=== PATIENT | female | born 1950 | race Caucasian/White ===

== ENCOUNTER 2016-06-06 05:39 | Inpatient (IN) | payer OTHER, MEDICARE ==
--- NOTE | 2016-06-05 16:20 | GHP ---
[f rep st] PREOP HISTORY AND PHYSICAL PREOPERATIVE DIAGNOSIS: Left ureteral obstruction with hydronephrosis. HISTORY OF PRESENT ILLNESS: This is a 65-year-old female who is referred from Dr. Sanjuanita Couch and Dr. Wan Mtz because of left hydronephrosis. She is status post debulking of extensive ovarian cancer in December in [place]. Postop CT scan revealed distal ureteral obstruction. She appears to have a staple across her ureter causing obstruction. She has a nephrostomy tube in place. She has completed chemotherapy. She is admitted for exploration with possible ureteral ureterostomy or ureteral robert cystotomy. PAST MEDICAL HISTORY: Kidney infection, ovarian cancer, hydronephrosis. PAST SURGERY: Breast surgery, ovarian cancer, ureteroscopy. MEDICATIONS: Cytomel, Synthroid. ALLERGIES: None. FAMILY HISTORY: Denied. SOCIAL HISTORY: Rare alcohol consumption. . REVIEW OF SYSTEMS: Negative cardiac, respiratory, GI and endocrine. PHYSICAL EXAM: VITAL SIGNS: Stable. CHEST: Clear. HEART: Regular rate and rhythm. ABDOMEN: Normal. No organomegaly, rebound, or guarding. EXTREMITIES : Lower extremities are normal. At the present time, she is admitted for the above procedure. /[id number]/MODL MTDD
[2016-06-06] MEDS ORDERED: ceFAZolin 2 GM/DEXTROSE 100 ML IV ONE (06:00)
[2016-06-06] MEDS ORDERED: LR 1,000 ML IV ONE (06:32)
[2016-06-06] MEDS ORDERED: MIDAZOLAM 2 MG/2 ML VIAL ONE (07:10)
[2016-06-06] MEDS ORDERED: PROPOFOL/EMULSION 500 MG/50 ML BOTTLE IV ONE (07:24)
[2016-06-06] MEDS ORDERED: fentaNYL 100 MCG/2 ML INJ ONE ×2 (07:24→10:30)
[2016-06-06] MEDS ORDERED: LIDOCAINE HCL 160 MG/4 ML LTA KIT TP ONE (07:25)
[2016-06-06] MEDS ORDERED: DEXAMETHASONE 4 MG/ML VIAL ONE (07:25)
[2016-06-06] MEDS ORDERED: LIDOCAINE 2% 100 MG/5 ML SYR IVP ONE (07:25)
[2016-06-06] MEDS ORDERED: ONDANSETRON 4 MG/2 ML VIAL ONE (07:25)
[2016-06-06] MEDS ORDERED: ROCURONIUM 50 MG/5 ML VIAL ONE (07:25)
[2016-06-06] MEDS ORDERED: PHENYLEPHRINE HCL 100 MCG/ML SYR ONE (07:41)
[2016-06-06] MEDS ORDERED: SUGAMMADEX SODIUM 200 MG/2 ML VIAL IVP ONE (09:59)
[2016-06-06] MEDS ORDERED: ACETAMINOPHEN 325 MG TAB PO PRN (10:15)
--- NOTE | 2016-06-06 10:20 | POSTOPPROG ---
Post Op Note Date of Operation: 06/06/16 Surgeon: Arash Williamson Steaming Machine Operator: Harlan Anesthesiologist: Robert Anesthesia: LMA Pre-op Diagnosis: left hyronephrosis Post-op Diagnosis: same Indication: same Procedure: left ureteroneocystostomy, stent, psoas hitch, lysis of adhesions Findings: hydro Inf/Abcess present in the surg proc area at time of surgery?: No EBL: 50-100 Complications: none Drains: Roberto Rader Specimen(s): dictated, no specimen
--- NOTE | 2016-06-06 11:33 | GOP ---
[f rep st] OPERATIVE REPORT DATE OF OPERATION: SURGEON: Arash Williamson MD CUSTOMER SUCCESS DIRECTOR: Harlan. ANESTHESIOLOGIST: Robert provided general anesthesia. PREOPERATIVE DIAGNOSIS: Left ureteral obstruction with hydronephrosis. POSTOPERATIVE DIAGNOSIS: Left ureteral obstruction with hydronephrosis. PROCEDURE PERFORMED: Left ureteroneocystostomy, lysis of adhesions, intraoperative ureteral stent pl acement and psoas hitch. FINDINGS: SPECIMENS: None. ESTIMATED BLOOD LOSS: Less than 100 mL. DESCRIPTION OF PROCEDURE: After appropriate general anesthesia, a time-out was performed in appropri ate fashion. She had a lower midline incision carried down through skin and old suture was removed f rom her prior surgery closure. Then I was able to enter the abdomen and there were several adhesions of the small bowel that were taken down sharply. Meticulous care not to make an enterotomy was perf ormed, and then I entered the space of Retzius to the left side of the bladder, and then also the rig ht side and after mobilizing the bladder dissected out where I could identify the iliac vessels. She had a significant amount of inflammatory reaction with pelvic varices identified and visually identi fy the ureter as it came over the iliac vessels. I dissected that out and mobilized it in attempt to preserve its vascular supply. I then dissected out to where I could identify it with clips and then placed across the ureter, transected it, and then made sure there was no tension on the ureter, and then I did a psoas hitch with 0 Vicryl. Then the cystotomy was made in and approximated the ureter t o the bladder mucosa with a 4-0 Vicryl suture. It was bridged with a 6-Italian stent and then the saumya dder was tested and noted to be water tight. A ARABELLA drain placed in the space of Retzius on the left s joon of the pelvis and after irrigating it hemostasis was appreciated, and then the linea alba approxi mated with 0 PDS. Subcutaneous tissue was hemostatic and skin jameson placed. Drains were in place with a 3-0 silk. COMPLICATIONS: None. /[id number]/MODL
[2016-06-06] MEDS: HYDROCODONE/APAP 5/325 TAB PO PRN ×2 (12:32→18:03)
[2016-06-06] MEDS: ONDANSETRON 4 MG/2 ML VIAL IVP PRN ×2 (12:34→19:25)
[2016-06-06] MEDS: D5W 1/2 NS 1,000 ML IV SCH (14:32)
[2016-06-06] MEDS: ZOLPIDEM TARTRATE 5 MG TAB PO PRN (20:34)
[2016-06-06] MEDS: ONDANSETRON DISINTEGRATING 4 MG TAB PO PRN (20:35)
[2016-06-07] MEDS: D5W 1/2 NS 1,000 ML IV SCH ×3 (00:29→20:19)
[2016-06-07] MEDS: ONDANSETRON DISINTEGRATING 4 MG TAB PO PRN (00:29)
[2016-06-07] MEDS: ZOLPIDEM TARTRATE 5 MG TAB PO PRN (00:38)
[2016-06-07] MEDS ORDERED: OXYCODONE/APAP 5/325 TAB PO PRN (01:50)
[2016-06-07] MEDS ORDERED: LIDOCAINE 2% JELLY 20 ML (UROJECT) ONE (05:32)
[2016-06-07] MEDS ORDERED: LIDOCAINE 2% JELLY 20 ML (UROJECT) TP ONE (06:00)
[2016-06-07 06:04] LABS: % IMMATURE GRANULYOCYTES 0.3 % (0.0-1.1); ABSOLUTE IMMATURE GRANULOCYTES 0.02 10^3/uL (0.00-0.10); ADD DIFF? NO; ADD MORPH? NO; ADD SCAN? NO; ATYPICAL LYMPHOCYTE FLAG 10 (0-99); FRAGMENT RBC FLAG 10 (0-99); HEMATOCRIT 29.4 % (38.0-47.0); HEMOGLOBIN 9.5 g/dL (12.6-16.3); LEFT SHIFT FLG 0 (0-99); LIPEMIA HEMOLYSIS FLAG 80 (0-99); MEAN CELL HEMOGLOBIN 34.9 pg (27.9-34.1); MEAN CELL HEMOGLOBIN CONCENTR. 32.3 g/dL (32.4-36.7); MEAN CELL VOLUME 108.1 fL (81.5-99.8); MEAN PLATELET VOLUME 9.9 fL (8.7-11.7); PLATELET CLUMPS FLAG 0 (0-99); PLATELET COUNT 179 10^3/uL (150-400); RED BLOOD CELL COUNT 2.72 10^6/uL (4.18-5.33); RED CELL DISTRIBUTION WIDTH 16.5 % (11.5-15.2)
[2016-06-07] MEDS: LEVOTHYROXINE 100 MCG TAB PO SCH (06:05)
[2016-06-07 06:20] LABS: ANION GAP 5 mEq/L (8-16); CARBON DIOXIDE 27 mEq/l (22-31); CHLORIDE 104 mEq/L (97-110); CREATININE 0.6 mg/dL (0.6-1.0); GLOMERULAR FILTRATION RATE > 60; GLUCOSE 107 mg/dL (70-100); POTASSIUM 4.1 mEq/L (3.5-5.2); SODIUM 136 mEq/L (134-144)
[2016-06-07] MEDS: LIOTHYRONINE SODIUM 25 MCG TAB PO SCH (10:14)
--- NOTE | 2016-06-07 10:57 | SOAPPROG ---
[facility] Progress Note Assessment/Plan: Assessment: Hydronephrosis Acute POD 1, doing well Plan: as ordered 06/07/16 10:55 Subjective: ok Objective: Vital Signs Temp Pulse Resp BP Pulse Ox 37.1 C 78 16 95/56 L 98 06/07/16 08:22 06/07/16 08:22 06/07/16 08:22 06/07/16 04:35 06/07/16 08:22 Laboratory Results 06/07/16 05:45 06/07/16 05:45 06/06/16 06/07/16 06/08/16 05:59 05:59 05:59 Intake Total 2941 Output Total 3315 850 Balance -374 -850 Physical Exam - Physical Exam General Appearance: alert Respiratory: No respiratory distress Cardiac/Chest: regular rate, rhythm Abdomen: soft Extremities: No calf tenderness Neuro/Psych: alert, oriented x 3 ICD10 Worksheet Patient Problems: Problems Problem Status Diagnosed Hydronephrosis Acute Pneumothorax on left Acute Small bowel obstruction Acute - ICD10 Problem Qualifiers (1) Hydronephrosis
[2016-06-07] MEDS: HYDROCODONE/APAP 5/325 TAB PO PRN ×2 (14:17→20:20)
[2016-06-07] MEDS: ONDANSETRON 4 MG/2 ML VIAL IVP PRN ×2 (14:17→20:20)
--- NOTE | 2016-06-07 16:49 | IR ---
Antegrade Nephrostogram Nephrostomy Tube Removal Indication: Patient currently has a nephrostomy tube and a double-J ureteral stent. Status post urete ral implantation surgery yesterday. ARABELLA drain is in the pelvis. Evaluate drainage via stent and rule o ut leak. Informed Consent: Obtained from the patient. Risks and benefits were discussed. Cross Cutting Measure: Patient's current list of medications including all known prescriptions, over -the-counter medications, herbals, and vitamin/mineral/dietary supplements are reviewed. Medications ' name, dosage, frequency, and route of administration are confirmed. Patient is a non-smoker. Prophylactic Antibiotic: Cefazolin was not ordered and administered for antimicrobial prophylaxis be cause it was not medically necessary. VTE Prophylaxis: There is not an order for VTE prophylaxis to be given within 24 hours of the proced ure end time. VTE prophylaxis was not given because it was not medically necessary. Technique: Patient is placed in right lateral decubitus position. This is the only position the pat ient was able to tolerate. A "timeout" procedure was performed to identify the correct patient and th e correct procedure. 1% Xylocaine was used for local anesthetic. All elements of maximal sterile b arrier technique including cap, mask, sterile gown, sterile gloves, large sterile sheet, hand hygiene , and 2% chlorhexidine for cutaneous antisepsis, followed. Antegrade nephrostogram was performed via the nephrostomy tube. This shows rapid antegrade drainage v ia the stent into bladder. Digital subtraction antegrade nephrostogram was performed, which does not show any extrabladder extravasation. Contrast fills the bladder. The tube was then cut and removed over wire under fluoroscopic visualization. Post nephrostomy tube i mage over the kidney shows lack of displacement of the stent. Fluoroscopy: 1.6 minutes, 5 images. Impressions 1. Rapid antegrade drainage via stent. 2. No evidence for leakage at the anastomosis distally. 3. Nephrostomy tube removed.
[2016-06-08] MEDS: D5W 1/2 NS 1,000 ML IV SCH (05:01)
[2016-06-08] MEDS: LEVOTHYROXINE 100 MCG TAB PO SCH (05:01)
[2016-06-08] MEDS: ONDANSETRON 4 MG/2 ML VIAL IVP PRN ×2 (07:42→21:21)
[2016-06-08] MEDS: HYDROCODONE/APAP 5/325 TAB PO PRN ×2 (07:42→21:22)
[2016-06-08] MEDS: LIOTHYRONINE SODIUM 25 MCG TAB PO SCH (09:37)
--- NOTE | 2016-06-08 10:13 | SOAPPROG ---
[facility] Progress Note Assessment/Plan: Assessment: Hydronephrosis Acute POD #2, doing well Plan: as ordered 06/08/16 10:12 Subjective: feeling good today, no flatus, desires some food Objective: Vital Signs Temp Pulse Resp BP Pulse Ox 37.2 C 110 H 18 90/68 L 97 06/08/16 08:14 06/08/16 08:14 06/08/16 08:14 06/08/16 08:14 06/08/16 08:14 Laboratory Results 06/07/16 05:45 06/07/16 05:45 06/07/16 06/08/16 06/09/16 05:59 05:59 05:59 Intake Total 2941 3300 Output Total 3310 5241 770 [facility] [phone] Physical Exam - Physical Exam General Appearance: alert Respiratory: No respiratory distress Cardiac/Chest: regular rate, rhythm Abdomen: soft Back: No CVA tenderness Extremities: No calf tenderness, No Jorge A's sign Neuro/Psych: oriented x 3 ICD10 Worksheet Patient Problems: Problems Problem Status Diagnosed Hydronephrosis Acute Pneumothorax on left Acute Small bowel obstruction Acute - ICD10 Problem Qualifiers (1) Hydronephrosis
[2016-06-09] MEDS: LEVOTHYROXINE 100 MCG TAB PO SCH (05:31)
[2016-06-09 08:16] VITALS: RESP 18; TEMP 98.4; O2SAT 99
[2016-06-09] MEDS: LIOTHYRONINE SODIUM 25 MCG TAB PO SCH (08:22)
--- NOTE | 2016-06-09 09:53 | SOAPPROG ---
SOAP Progress Note Assessment/Plan: Assessment: Hydronephrosis Acute POD #3, doing well, consider DC Plan: DC home with jamar, follow up Friday06/09/16 10:00 Subjective: no pain, doing well Objective: Vital Signs Temp Pulse Resp BP Pulse Ox 36.9 C 89 18 100/59 L 99 06/09/16 08:15 06/09/16 08:15 06/09/16 08:15 06/09/16 08:15 06/09/16 08:15 Laboratory Results 06/07/16 05:45 06/07/16 05:45 06/08/16 06/09/16 06/10/16 05:59 05:59 05:59 Intake Total 3300 3449 Output Total 4520 4440 Balance -1220 -991 Physical Exam - Physical Exam General Appearance: alert Respiratory: No respiratory distress Cardiac/Chest: regular rate, rhythm Abdomen: soft (incision ok, jameson clean) Back: No CVA tenderness Extremities: No calf tenderness, No Jorge A's sign Neuro/Psych: alert, oriented x 3 ICD10 Worksheet Patient Problems: Problems Problem Status Diagnosed Hydronephrosis Acute Pneumothorax on left Acute Small bowel obstruction Acute - ICD10 Problem Qualifiers (1) Hydronephrosis
[2016-06-09 10:27] VITALS: BP 105/72; PULSE 96
== END 2016-06-09 12:47 | disposition home or self-care (01) | DRG 660 ==
LOC: F3N 05:39 → F1N 10:19
PROVIDERS: ADMIT Specialist; ATTEND Specialist
PROC: 0T770DZ Dilation of Left Ureter with Intraluminal Device, Open Approach (ICD-10-PCS; principal; 2016-06-06 07:24)
PROC: 0DN80ZZ Release Small Intestine, Open Approach (ICD-10-PCS; principal; 2016-06-06 07:24)
PROC: 0TS70ZZ Reposition Left Ureter, Open Approach (ICD-10-PCS; principal; 2016-06-06 07:24)
PROC: BT1F1ZZ Fluoroscopy of Left Kidney, Ureter and Bladder using Low Osmolar Contrast (ICD-10-PCS; 2016-06-07)
PROC: 0TP5X0Z Removal of Drainage Device from Kidney, External Approach (ICD-10-PCS; 2016-06-07)
DX: N99.89 Other postprocedural complications and disorders of genitourinary system (principal); N13.1 Hydronephrosis with ureteral stricture, not elsewhere classified; Z93.6 Other artificial openings of urinary tract status; K66.0 Peritoneal adhesions (postprocedural) (postinfection); Z85.43 Personal history of malignant neoplasm of ovary; Z92.21 Personal history of antineoplastic chemotherapy; Z85.3 Personal history of malignant neoplasm of breast; E03.9 Hypothyroidism, unspecified
CPT/HCPCS: C1729; C1769; C2625; J0690; J1100; J2001; J2250; J2370; J2405; J2704; J3010

== ENCOUNTER 2016-06-09 21:02 | Emergency (ER) | payer OTHER, MEDICARE ==
[2016-06-09 21:19] VITALS: RESP 16; TEMP 97.7
--- NOTE | 2016-06-09 22:15 | EDPHY ---
H & P Time Seen by Provider: 06/09/16 21:54 HPI/ROS: CHIEF COMPLAINT: Ruiz catheter issue HISTORY OF PRESENT ILLNESS: 65-year-old female presents to the emergency department with concerns about her Ruiz catheter. The patient had recent abdominal surgery and has an indwelling Ruiz catheter placed. The patient was unsure of how to connect the leg bag and transfer to the night bag. She has incisional pain from her a recent abdominal surgery. She denies any other abdominal pain. No vomiting or diarrhea. She has no back pain. No fevers or chills. No chest pain or difficulty breathing. REVIEW OF SYSTEMS: Constitutional: No fever, no chills. Eyes: No double or blurry vision. ENT: No sore throat. Respiratory: No cough, no shortness of breath. Cardiac: No chest pain. Gastrointestinal: As above. No vomiting or diarrhea. Genitourinary: No dysuria. Musculoskeletal: No neck or back pain. Skin: No rashes. Neurological: No headache. Past Medical/Surgical History: Breast cancer, ovarian cancer, hypothyroidism, recent abdominal surgery to remove tumor Social History: Single and lives in [place] Smoking Status: Never smoked Physical Exam: General Appearance: Alert, no distress. Afebrile. Nontoxic appearing. Eyes: Pupils equal and round. Extraocular motions are all intact. ENT: Mouth: Mucous membranes moist. Respiratory: No wheezing, rhonchi, or rales, lungs are clear to auscultation. Cardiovascular: Regular rate and rhythm. Gastrointestinal: Midline surgical incision with jameson present. Minimally tender to palpate. There is no redness, warmth or signs of infection. No purulent drainage. Bowel sounds are present. No CVA tenderness bilaterally. Neurological: Alert and oriented x 3, cranial nerves II through XII grossly intact Skin: Warm and dry, no rashes. Musculoskeletal: Nontender to palpate along the cervical, thoracic or lumbar spine. Neck is supple. Extremities: Full range of motion and no peripheral edema. Psychiatric: Patient is oriented X 3, there is no agitation. Constitutional: Initial Vital Signs Temperature (C) 36.5 C 06/09/16 21:14 Heart Rate 90 06/09/16 21:14 Respiratory Rate 16 06/09/16 21:14 Blood Pressure 81/66 L 06/09/16 21:14 O2 Sat (%) 98 06/09/16 21:14 O2 Delivery Mode Room Air Allergies/Adverse Reactions: No Known Allergies Allergy (Verified 06/09/16 21:19) Home Medications: Medication Instructions Recorded Levothyroxine [Synthroid 100 mcg 100 mcg PO DAILY06 01/16/16 (*)] Liothyronine Sodium [Cytomel 25 12.5 mcg PO DAILY 01/16/16 mcg (*)] Medical Decision Making ED Course/Re-evaluation: 65-year-old female presents after recent abdominal surgery. She has an indwelling Ruiz catheter. She was not sure of how to care for the Ruiz catheter or transfer to the overnight bag. This was discussed with the nurse. The nurse gave special teaching instructions. The patient feels comfortable going home. She was instructed to keep the catheter in place until Friday. She will keep her scheduled appointment. She was encouraged to return to the emergency department if she developed worsening abdominal pain, fever, vomiting , or any other concerns. She was comfortable with this plan. Differential Diagnosis: Including but not limited to Ruiz catheter malfunction, bowel obstruction, urinary tract infection, pyelonephritis Departure - Departure Disposition: Home, Routine, Self-Care Clinical Impression: Problem with Ruiz catheter Qualifiers: Encounter type: initial encounter Qualifier Code: (T83.9XXA) Unspecified complication of genitourinary prosthetic device, implant and graft, initial encounter Condition: Good Instructions: Ruiz Catheter Placement and Care (ED) Additional Instructions: Please return to the emergency department if you have any other concerns.
[2016-06-09 22:32] VITALS: BP 92/68; PULSE 91; O2SAT 95
== END 2016-06-09 22:30 | disposition home or self-care (01) ==
DX: T83.9XXA Unspecified complication of genitourinary prosthetic device, implant and graft, initial encounter (principal); Z85.3 Personal history of malignant neoplasm of breast; Z85.43 Personal history of malignant neoplasm of ovary; Y73.2 Prosthetic and other implants, materials and accessory gastroenterology and urology devices associated with adverse incidents